=== PATIENT | male | born 1950 | race Caucasian/White ===

== ENCOUNTER 2016-06-24 14:10 | Emergency (ER) | payer BC, MEDICARE, OTHER ==
[~2016-06-24] VITALS: Ht 177.8 cm; Wt 87.9 kg
[~2016-06-24 14:10] MED LIST: AMLH550 PO; CHOL400C7 PO; LISI5TAB3 PO; PRAV20TA2 PO; ZNT/150 PO
[2016-06-24 14:18] VITALS: TEMP 36.8; Ht 177.8 cm; Wt 87.9 kg
[2016-06-24] MEDS ORDERED: BISO5TAB3 PO (14:40)
[2016-06-24] MEDS ORDERED: LISI-526 PO (14:40)
[2016-06-24] MEDS ORDERED: NAPR250T3 PO (14:40)
[2016-06-24] MEDS ORDERED: ASPI81TA28 PO (14:40)
[2016-06-24] MEDS ORDERED: SODIUM CHLORIDE 0.9% 1000ML 1,000 ML IV STA (14:53)
[2016-06-24] MEDS ORDERED: SODIUM CHLORIDE 0.9% 1000ML 1,000 ML IV ONE (14:53)
--- NOTE | 2016-06-24 14:57 | EMERGENCY ROOM VISIT NOTE ---
History Report prepared by Alicia: James Resendez Under the Supervision of: Dr. Mario Fan M.D. 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 He rates his current pain a 1/10 in severity. At this time, the patient needed to use the restroom. He had an episode of diarrhea. However, as he was having his bowel movement, he began to experience diaphoresis. The next thing he knew, he was on the floor. Secondary to his fall, he is having neck pain, shoulder pain, nasal pain, and upper lip pain. He states that this episode was "probably" only a couple of minutes. He denies any chest pain, shortness of breath, headache, melena, or hematochezia. He is having cramping abdominal pain. He does not think that he hit his head. He has not had any recent antibiotics. He take Aspirin 80 mg PO everyday. 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 A total of 10 systems reviewed and were otherwise negative. Past Medical & Surgical Medical Problems: (1) HTN (hypertension) (2) Hyperlipidemia Old medical records were reviewed. Nurse's notes were reviewed and I agree with. Family History Diabetes mellitus FH: heart disease Social History Smoking Status: Never Smoker Smokeless Tobacco Use: No Alcohol Use: none Drug Use: none Marital Status: Housing Status: lives with family Occupation Status: employed Current/Historical Medications Scheduled Aspirin (Aspirin Ec), 81 MG PO DAILY Bisoprolol Fumarate (Zebeta), 5 MG PO DAILY Lisinopril (Prinivil), 30 MG PO DAILY Pravastatin Sodium (Pravachol), 40 MG PO HS Ranitidine Hcl (Zantac), 150 MG PO DAILY Scheduled PRN Naproxen Tab (Naprosyn), 250 MG PO BID PRN for Pain Allergies Coded Allergies: No Known Allergies (Unverified , 02/05/12) Physical Exam Vital Signs Date Time Temp Pulse Resp B/P Pulse Ox O2 Delivery O2 Flow Rate FiO2 06/24/16 18:42 60 16 147/76 99 06/24/16 17:18 58 06/24/16 17:00 58 17 151/79 99 Room Air 06/24/16 15:20 61 16 139/71 96 Room Air 06/24/16 14:18 36.8 62 20 148/72 99 Room Air Physical Exam General: Non ill appearing middle aged male, cervical collar in place. Well developed well nourished in no acute distress, breathing comfortably on room air. Normal speech HEENT: Normocephalic. Pupils are equal round and reactive to light. Extraocular movements are intact. Oropharynx is pink with moist mucous membranes. Abrasion to the bridge of the nose and the upper lip. Neck: Supple with a midline trachea. No meningeal signs or stiffness, no JVD or bruits. No Stridor. Chest: Clear to auscultation bilaterally. No wheezes or rhonchi. No increased work of breathing. Heart: regular rate and rhythm. Abdomen: Soft nontender, nondistended without rebound guarding or rigidity. Extremities: No cyanosis clubbing or edema. No calf tenderness or assymetry Spine/Back. Non tender to palpation. No CVA tenderness Skin: Good turgor without rashes. Neurologic exam: Cranial nerves two through 12 are intact. Motor and sensation are intact and symmetrical throughout. Medical Decision & Procedures ER Provider Diagnostic Interpretation: Radiology results as stated below per my review and radiologist interpretation: CT HEAD WITHOUT CONTRAST (CT) CLINICAL HISTORY: Head pain status post trauma COMPARISON STUDY: No previous studies for comparison. TECHNIQUE: Axial CT of the brain is performed from the vertex to the skull base. IV contrast was not administered for this examination. CT DOSE: FINDINGS: No intra or extra-axial mass lesions are visualized. There is no CT evidence of acute cortical infarction. There is no evidence of midline shift. There is no acute hemorrhage. No calvarial fractures are visualized. There is dense basal ganglial mineralization. There is no evidence of pathologic ventricular dilatation. There is no evidence of acute sinusitis IMPRESSION: No acute intracranial findings Electronically signed by: Torsten Aguilar M.D. 06/24/2016 3:45 PM Dictated Date/Time: 06/24/2016 3:44 PM CHEST ONE VIEW PORTABLE CLINICAL HISTORY: Chest pain. Fall. COMPARISON STUDY: No previous studies for comparison. FINDINGS: There is no pneumothorax or pleural effusion. There is no airspace opacity within the lungs. Cardiac size is at upper limits of normal. There is no evidence of pulmonary edema. IMPRESSION: No acute cardiopulmonary findings. Electronically signed by: Saurav Estrella M.D. 06/24/2016 3:22 PM Dictated Date/Time: 06/24/2016 3:[address] OF THE CERVICAL SPINE CLINICAL HISTORY: Neck pain status post trauma COMPARISON STUDY: No previous studies for comparison. CT DOSE: 1013.40 mGy.cm TECHNIQUE: CT scan of the cervical spine was performed from the skull base to the thoracic inlet. Images are reviewed in the axial, sagittal, and coronal planes. IV contrast was not administered for this examination. FINDINGS: The visualized portions of the lung apices reveal no evidence of pneumothorax. There is scattered air within multiple veins and neck, likely iatrogenic. The prevertebral soft tissues are normal. No fractures or subluxations are visualized. There are advanced multilevel degenerative changes with exuberant anterior osteophytes at the C5-6 and C6-7 levels there is also ulnar joint spurring with mild multilevel bony foraminal narrowing IMPRESSION: No evidence of acute fracture or traumatic subluxation. Electronically signed by: Torsten Aguilar M.D. 06/24/2016 3:54 PM Dictated Date/Time: 06/24/2016 3:[address] DOSE: HISTORY: Fall. eval for trauma TECHNIQUE: Multiaxial CT images of the maxillofacial region were performed and reformatted in the coronal plane without the use of contrast. COMPARISON: None. FINDINGS: The visualized cervical spine, skull base, pterygoid plates, nasal bones, lamina papyracea, orbital floors, mandible, and zygomatic arches are intact. No fractures. The orbits are unremarkable. IMPRESSION: No fractures within the maxillofacial region. Electronically signed by: Corwin Hernandez M.D. 06/24/2016 3:58 PM Dictated Date/Time: 06/24/2016 3:53 PM Laboratory Results 06/24/16 14:40 Red Blood Count 5.43, Mean Corpuscular Volume 86.2, Mean Corpuscular Hemoglobin 28.4, Mean Corpuscular Hemoglobin Concent 32.9, Mean Platelet Volume 11.0, Neutrophils (%) (Auto) 83.0, Lymphocytes (%) (Auto) 10.2, Monocytes (%) (Auto) 6.2, Eosinophils (%) (Auto) 0.2, Basophils (%) (Auto) 0.1, Neutrophils # (Auto) 10.89, Lymphocytes # (Auto) 1.34, Monocytes # (Auto) 0.81, Eosinophils # (Auto) 0.03, Basophils # (Auto) 0.01 06/24/16 14:40 Test 06/24/16 14:40 06/24/16 15:14 White Blood Count 13.12 K/uL (4.8-10.8) Red Blood Count 5.43 M/uL (4.7-6.1) Hemoglobin 15.4 g/dL (14.0-18.0) Hematocrit 46.8 % (42-52) Mean Corpuscular Volume 86.2 fL (80-100) Mean Corpuscular Hemoglobin 28.4 pg (25-34) Mean Corpuscular Hemoglobin Concent 32.9 g/dl (32-36) Platelet Count 172 K/uL (130-400) Mean Platelet Volume 11.0 fL (7.4-10.4) Neutrophils (%) (Auto) 83.0 % Lymphocytes (%) (Auto) 10.2 % Monocytes (%) (Auto) 6.2 % Eosinophils (%) (Auto) 0.2 % Basophils (%) (Auto) 0.1 % Neutrophils # (Auto) 10.89 K/uL (1.4-6.5) Lymphocytes # (Auto) 1.34 K/uL (1.2-3.4) Monocytes # (Auto) 0.81 K/uL (0.11-0.59) Eosinophils # (Auto) 0.03 K/uL (0-0.5) Basophils # (Auto) 0.01 K/uL (0-0.2) RDW Standard Deviation 48.9 fL (36.4-46.3) RDW Coefficient of Variation 15.5 % (11.5-14.5) Immature Granulocyte % (Auto) 0.3 % Immature Granulocyte # (Auto) 0.04 K/uL (0.00-0.02) Anion Gap 2.0 mmol/L (3-11) Est Creatinine Clear Calc Drug Dose 63.3 ml/min Estimated GFR () 66.4 Estimated GFR (Non- 57.3 BUN/Creatinine Ratio 14.9 (10-20) Calcium Level 9.1 mg/dl (8.5-10.1) Total Bilirubin 0.9 mg/dl (0.2-1) Direct Bilirubin 0.2 mg/dl (0-0.2) Aspartate Amino Transf (AST/SGOT) 18 U/L (15-37) Alanine Aminotransferase (ALT/SGPT) 19 U/L (12-78) Alkaline Phosphatase 68 U/L (45-117) Total Protein 7.2 gm/dl (6.4-8.2) Albumin 3.7 gm/dl (3.4-5.0) Lipase 136 U/L (73-393) Bedside Troponin I 0.000 ng/ml (0-0.045) Laboratory studies as stated above per my review. Medications Administered Medications (Trade) Dose Ordered Sig/John Route Start Time Stop Time Status Last Admin Dose Admin Sodium Chloride 1,000 ml @ 999 mls/hr Q1H1M STAT IV 06/24/16 14:53 06/24/16 15:53 DC 06/24/16 15:25 999 MLS/HR Sodium Chloride (Nss 1000ml) 1,000 ml @ 200 mls/hr Q5H ONCE IV 06/24/16 14:53 06/24/16 18:51 DC 06/24/16 15:46 200 MLS/HR ECG Indication: other (Fall) Rate (beats per minute): 56 Rhythm: sinus bradycardia Findings: no acute ischemic change, no ectopy Comparison ECG Date: 05 Feb 2012 Change: The rate has decreased. ED Course 1436: Past medical records reviewed. The patient was evaluated in room A11B, and a complete history and physical examination were performed. 1453: Ordered Sodium Chloride 1000 ml @ 200 mls/hr IV, Sodium Chloride 1000 ml @ 999 mls/hr IV 1500: Ordered Lidocaine HCl 20 ml INFIL 1750: The patient is doing well. He is asymptomatic. He will not need stitches for his lacerations. We will put a Steristrip on his nose. He will perform an ambulatory trial. 182: He ambulated without difficulty. 1826: Upon reevaluation, the patient is resting. I discussed the results and treatment plan with him. He verbalized agreement of the treatment plan. The patient was discharged home. Medical Decision Differentials include syncope, dehydration, arrhythmia, and electrolyte or metabolic abnormality. This patient comes in after having a syncopal episode. This is setting of having diarrhea. He had a lot of cramping and he felt nauseated beforehand. There were definitely prodromal symptoms. He did hit his face. He says he feels fine at present. No chest pain or shortness of breath. He has a small abrasion/laceration to his nose. This does not require suturing nor does the one above his lip. CAT scan of his head neck and face were unremarkable. EKG does not suggest acute coronary syndrome or arrhythmia. He was hydrated with IV normal saline while he was here blood work was obtained. He has no acute electrolyte or metabolic abnormalities. Cardiac biomarkers are not elevated. He was able to ambulate without difficulty. He feels good and would like to go home. I think most likely this was from his diarrhea and and was more likely vasovagal. I told him to rest and drink plenty of fluids. Use Imodium if needed for diarrhea. Return if: Increasing pain, chest pain, shortness of breath, worsening symptoms, fever or chills any new problems or concerns. He is happy with plan discharged to home. Impression Primary Impression: Syncope Additional Impression: Diarrhea Scribe Attestation The scribe's documentation has been prepared under my direction and personally reviewed by me in its entirety. I confirm that the note above accurately reflects all work, treatment, procedures, and medical decision making performed by me. Departure Information Dispostion Home / Self-Care Referrals No Doctor, Assigned (PCP) Forms HOME CARE DOCUMENTATION FORM, IMPORTANT VISIT INFORMATION Patient Instructions My [facility] Additional Instructions Rest Drink plenty of fluids Be careful when getting up and down Return if: Worsening of symptoms, shortness of breath, numbness or weakness, fever or chills, chest pain, any new problems or concerns Follow up with your doctor in 1-2 days for weakness Problem Qualifiers
[2016-06-24] MEDS ORDERED: XYLOCAINE 1%/SOD BICARB 20 ML VIAL INFIL ONE (15:00)
[2016-06-24 15:08] LABS: BASO % 0.1 %; BASO ABS # 0.01 K/uL (0-0.2); COMPLETE YES; EOS % 0.2 %; HEMATOCRIT 46.8 % (42-52); IG% 0.3 %; LYMPH % 10.2 %; LYMPH ABS # 1.34 K/uL (1.2-3.4); MEAN CELL VOLUME 86.2 fL (80-100); MEAN CORPUSCULAR HEMOGLOBIN 28.4 pg (25-34); MEAN CORPUSCULAR HGB CONC 32.9 g/dl (32-36); MONO % 6.2 %; PLATELET COUNT 172 K/uL (130-400); RED BLOOD COUNT 5.43 M/uL (4.7-6.1); WHITE BLOOD COUNT 13.12 K/uL (4.8-10.8)
[2016-06-24 15:22] LABS: BUN/CREATININE RATIO 14.9 (10-20); CALCIUM 9.1 mg/dl (8.5-10.1); CREATININE 1.3 mg/dl (0.60-1.40); POTASSIUM 4.6 mmol/L (3.5-5.1)
--- NOTE | 2016-06-24 15:24 | DIAGNOSTIC IMAGING REPORT ---
CHEST ONE VIEW PORTABLE CLINICAL HISTORY: Chest pain. Fall. COMPARISON STUDY: No previous studies for comparison. FINDINGS: There is no pneumothorax or pleural effusion. There is no airspace opacity within the lungs. Cardiac size is at upper limits of normal. There is no evidence of pulmonary edema. IMPRESSION: No acute cardiopulmonary findings. Electronically signed by: Saurav Estrella M.D. 06/24/2016 3:22 PM Dictated Date/Time: 06/24/2016 3:22 PM
--- NOTE | 2016-06-24 15:46 | DIAGNOSTIC IMAGING REPORT ---
CT HEAD WITHOUT CONTRAST (CT) CLINICAL HISTORY: Head pain status post trauma COMPARISON STUDY: No previous studies for comparison. TECHNIQUE: Axial CT of the brain is performed from the vertex to the skull base. IV contrast was not administered for this examination. CT DOSE: FINDINGS: No intra or extra-axial mass lesions are visualized. There is no CT evidence of acute cortical infarction. There is no evidence of midline shift. There is no acute hemorrhage. No calvarial fractures are visualized. There is dense basal ganglial mineralization. There is no evidence of pathologic ventricular dilatation. There is no evidence of acute sinusitis IMPRESSION: No acute intracranial findings Electronically signed by: Torsten Aguilar M.D. 06/24/2016 3:45 PM Dictated Date/Time: 06/24/2016 3:44 PM
--- NOTE | 2016-06-24 15:55 | DIAGNOSTIC IMAGING REPORT ---
CT OF THE CERVICAL SPINE CLINICAL HISTORY: Neck pain status post trauma COMPARISON STUDY: No previous studies for comparison. CT DOSE: 1013.40 mGy.cm TECHNIQUE: CT scan of the cervical spine was performed from the skull base to the thoracic inlet. Images are reviewed in the axial, sagittal, and coronal planes. IV contrast was not administered for this examination. FINDINGS: The visualized portions of the lung apices reveal no evidence of pneumothorax. There is scattered air within multiple veins and neck, likely iatrogenic. The prevertebral soft tissues are normal. No fractures or subluxations are visualized. There are advanced multilevel degenerative changes with exuberant anterior osteophytes at the C5-6 and C6-7 levels there is also ulnar joint spurring with mild multilevel bony foraminal narrowing IMPRESSION: No evidence of acute fracture or traumatic subluxation. Electronically signed by: Torsten Aguilar M.D. 06/24/2016 3:54 PM Dictated Date/Time: 06/24/2016 3:51 PM
--- NOTE | 2016-06-24 15:59 | DIAGNOSTIC IMAGING REPORT ---
MAXILLOFACIAL CT CT DOSE: HISTORY: Fall. eval for trauma TECHNIQUE: Multiaxial CT images of the maxillofacial region were performed and reformatted in the coronal plane without the use of contrast. COMPARISON: None. FINDINGS: The visualized cervical spine, skull base, pterygoid plates, nasal bones, lamina papyracea, orbital floors, mandible, and zygomatic arches are intact. No fractures. The orbits are unremarkable. IMPRESSION: No fractures within the maxillofacial region. Electronically signed by: Corwin Hernandez M.D. 06/24/2016 3:58 PM Dictated Date/Time: 06/24/2016 3:53 PM
[2016-06-24 18:42] VITALS: BP 147/76; PULSE 60; O2SAT 99
== END 2016-06-24 18:45 | disposition home or self-care (01) ==
LOC: C.EDB 14:12 → C.EDA 18:45
DX: R55 Syncope and collapse (principal); R19.7 Diarrhea, unspecified; M54.2 Cervicalgia; R00.1 Bradycardia, unspecified; I10 Essential (primary) hypertension; E78.5 Hyperlipidemia, unspecified; Z79.82 Long term (current) use of aspirin; Z79.899 Other long term (current) drug therapy; Z83.3 Family history of diabetes mellitus; Z82.49 Family history of ischemic heart disease and other diseases of the circulatory system